=== PATIENT | female | born 1940 | race Caucasian/White ===

== ENCOUNTER 2023-02-18 10:50 | Emergency (ER) | payer MEDICARE, SELFPAY ==
[2023-02-18] VITALS (7 sets, daily range): BP systolic 133–149; BP diastolic 58–70; PULSE 56–72; RESP 16–22; TEMP 37.2–37.4; O2SAT 94–96; BMI 33.9
--- NOTE | 2023-02-18 10:55 | ED.RN ---
PATIENT VERY VAGUE, DOES NOT KNOW HER ALLERGIES, DOES NOT KNOW HER SSN, DOES NOT KNOW HER MEDICAL HX OR ALLERGIES. REQUESTS TO CONTACT DR. RAFFI PASCAL FAMILY DOCTOR WHO IS ALSO NOT AFFILIATED WITH [facility].
--- NOTE | 2023-02-18 11:37 | EKG12_ITS ---
Test Reason : SOB Blood Pressure : / mmHG Vent. Rate : 063 BPM Atrial Rate : 063 BPM P-R Int : 152 ms QRS Dur : 070 ms QT Int : 474 ms P-R-T Axes : 016 -06 021 degrees QTc Int : 485 ms Normal sinus rhythm Inferior infarct , age undetermined Abnormal ECG Confirmed by BI HOBSON, INDY ([id number]), television news video editor MEHRAN MOISE ([id number]) on 02/24/2023 9:46:52 AM Referred By: Confirmed By:INDY PAT MD
--- NOTE | 2023-02-18 11:37 | RAD_ITS ---
STUDY: X-RAY CHEST REASON FOR EXAM: Female, 82 years old. Chest pain. Covid positive. TECHNIQUE: Single AP portable view of the chest. COMPARISON: None. FINDINGS: EKG electrodes are seen. Mild degree of increased markings in the medial aspect of the right lung base. Early infiltrate should be ruled out. There is no demonstrated pleural abnormality. Normal size heart. Normal mediastinum and shanta. Normal visualized pulmonary arteries. There is atherosclerotic calcification of the aortic arch with tortuosity. There are degenerative changes of the visualized thoracic spine. There is degenerative osteoarthritis of the bilateral shoulders. There is no demonstrated abnormality of the visualized soft tissue structures of the upper abdomen. RAD/Chest 1 View (Portable) IMPRESSION: Increased markings are seen in the medial aspect of the right lung base. Early infiltrate should be ruled Electronically Signed: Rubén Lovell MD at 12:17 EDT ,
[2023-02-18 11:48] LABS: Absolute Lymphocyte Count 1.41 X10^3/uL (0.83-4.51); Absolute Neutrophil Count 4.7 X10^3/uL (2.0-7.7); Basophil# 0.04 X10^3/uL; Basophil% 0.6 % (0-1); Eosinophil# 0.12 X10^3/uL; Eosinophils% 1.7 % (0-5); Hematocrit 42.8 % (37-47); Hemoglobin 14.4 g/dL (12.0-15.0); Lymphocyte # 1.41 X10^3/ul (0.83-4.51); Mean Corp Hgb Conc 33.6 g/dL (32-36); Mean Corpuscular Hgb 27.5 pg (27.0-32.0); Mean Corpuscular Volume 81.8 fL (81-99); Mean Platelet Vol. 9.8 fl (6.2-12.0); Monocyte# 0.74 X10^3/uL; Monocyte% 10.5 % (0-10); NRBC Flagged by Analyzer 0 % (0-5); Neutrophil # 4.69 X10^3/uL (2.7-7.7); Neutrophil % 66.4 % (47-70); Platelet Count 297 K/mm3 (150-450); RBC Distribution Width CV 12.6 % (11.6-14.6); RBC Distribution Width SD 37.4 fl (35.1-43.9); Red Blood Count 5.23 M/mm3 (4.2-5.4); White Blood Count 7.1 K/mm3 (4.4-11.0)
--- NOTE | 2023-02-18 11:51 | NURSING ---
NO OLD EKGS
[2023-02-18 12:04] LABS: Bacteria 0 SEEN /hpf (None Seen); Mucous, Urine 0 SEEN /hpf (<or=2+); Red Blood Cells-Urine 0 SEEN /hpf (0-5)
[2023-02-18 12:05] LABS: Color, Urine Yellow (Yellow); Glucose, Dipstick Normal (Normal); Ketone-Dipstick Negative (Negative); Leukocyte Esterase-Dipstick 25 /ul (Negative); Nitrite-Dipstick Negative (Negative); Occult Blood-Urine Negative /ul (Negative); Protein-Dipstick Negative (Negative); Urine Bilirubin Dipstick Negative (Negative); Urine Clarity Clear (Clear); Urine Urobilinogen Normal (Normal); Urine pH 6.5 (5.0 - 8.0)
--- NOTE | 2023-02-18 12:08 | ED.RN ---
FAMILY CONTACTING PATIENT PCP TO FAX INFORMATION REGARDING ALLERGIES, MEDICATIONS AND HX.
[2023-02-18 12:11] LABS: Squamous Epithelial Cells - UA 0-5 SEEN /hpf (5-10); White Blood Cells 0-5 SEEN /hpf (0-5)
[2023-02-18 12:26] LABS: Anion Gap 7 (5-15); BUN 13 mg/dL (7-18); BUN/Creat Ratio 12.9 RATIO (10-20); Calcium,Total 8.7 mg/dL (8.5-10.1); Chloride 99 mmol/L (98-107); Creatinine, Serum 1.01 mg/dL (0.55-1.02); EST Glomerular Filtration Rate 56 mL/min (>60); Est Glom Filt Rate - Afr Amer 67 mL/min (>60); Estimated Creatinine Clearance 32.41 ml/min; Glucose 153 mg/dL (74-106); Potassium 2.7 mmol/L (3.5-5.1); Sodium Level 134 mmol/L (136-145); Troponin-I HS 12 pg/mL (3.0-54.0)
--- NOTE | 2023-02-18 12:28 | ED.RN ---
LAB CALLED K OF 2.7 DR MORENO
[2023-02-18] MEDS: Potassium Chloride Oral Tablet 20 MEQ 40 MEQ PO ×2 (13:02→15:19)
--- NOTE | 2023-02-18 13:03 | ED.RN ---
FAMILY [facility] LEFT VM AT PHYSICIANS OFFICE AND WAS GIVEN THE MESSAGE WILL RESPOND IN 2-3 BUSINESS DAYS. I WILL ATTEMPT TO CONTACT PCP FOR INFORMATION.
[2023-02-18] MEDS: Azithromycin 250 MG Tablet 500 MG PO (14:19)
--- NOTE | 2023-02-18 14:45 | ED.RN ---
Lyla ESPINO DID LEAVE VM W/ PCP REGARDING INFORMATION- NO CALL BACK. PATIENT D/C WITHOUT ALLERGY VERIFICATION.
--- NOTE | 2023-02-18 15:14 | EX.ED.DYSGE1 ---
HPI History of Present Illness Chief Complaint: Shortness of Breath Narrative Narrative: 82-year-old female presenting with generalized weakness. Apparently the whole household has had COVID-19. Patient presumably had this about a week and 1/2 to 2 weeks ago. No longer having fevers she is not coughing. No nausea or vomiting. Her daughter comes to see her during the day. Her works. She also has a son who has COVID-19 who is currently ill at home. Patient has not had any falls. [facility] Medical History Hypertension Home Medications azithromycin 250 mg tablet 250 mg PO DAILY #4 TABLETS 02/18/23 [Rx Last Taken Unknown] Social History Smoking Status: Never smoker ROS ROS ED Constitutional Constitutional ED: Denies chills or fever(s) Eyes Eyes: Denies change in vision or diplopia ENT ENT ED: Denies rhinorrhea or sore throat Cardiovascular Cardiovascular: Denies chest pain or palpitations Respiratory/Chest Respiratory/Chest: Reports cough Gastrointestinal Gastrointestinal: Denies abdominal pain, nausea or vomiting Genitourinary Genitourinary ED: Denies dysuria or hematuria Musculoskeletal Musculoskeletal: Denies myalgias Integumentary Denies abscess or Abrasions Neurologic Neurologic: Denies headache(s) Psychiatric Psychiatric: Denies anxiety or depression EXAM Physical Exam Const Vital Signs: 02/18/23 10:53 02/18/23 10:55 02/18/23 10:58 Temperature 99 F 99 F Temperature Source Temporal Temporal Pulse Rate 64 66 Respiratory Rate 22 H 17 Respiratory Effort Normal Non-Labored Respiratory Pattern Normal Blood Pressure 133/62 H 133/62 H Blood Pressure Mean 85 85 Pulse Ox 96 94 Oxygen Delivery Method Room Air Room Air Room Air 02/18/23 11:53 02/18/23 12:00 02/18/23 12:00 Temperature 99.3 F H Temperature Source Temporal Pulse Rate 64 64 Respiratory Rate 16 17 Respiratory Effort Respiratory Pattern Blood Pressure 145/58 H 145/58 H Blood Pressure Mean 87 87 Pulse Ox 95 95 95 Oxygen Delivery Method Room Air Room Air Room Air 02/18/23 13:00 02/18/23 14:22 Temperature 99.1 F Temperature Source Temporal Pulse Rate 56 L 72 Respiratory Rate 20 H 16 Respiratory Effort Respiratory Pattern Blood Pressure 149/67 H 141/70 H Blood Pressure Mean 94 Pulse Ox 94 95 Oxygen Delivery Method Room Air Positive well nourished General Appearance ED: NAD; Negative for pallor HEENT Reports moist mucous membranes Eyes PERRL and EOMs intact bilaterally Chest Wall inspection of chest normal and palpation of chest normal Resp normal respiratory effort and clear to auscultation bilaterally Auscultation: Negative for rales, rhonchi or wheezes Cardio regular rate and regular rhythm GI normal to inspection, nondistended, normoactive bowel sounds Extremity normal to inspection Neuro oriented x3 and CN's II-XII intact bilaterally Sensorium / Orientation: alert Motor Exam: strength 5/5 throughout Psych mental status grossly normal Skin no rashes or lesions noted General Skin Exam: Negative for jaundice or pallor MDM MDM MDM Narrative Medical decision making narrative: Patient presenting with generalized weakness. Recently had COVID-19. Patient is able to ambulate and has not followed falls. Daughter brings her in for evaluation CBC was obtained to assess white blood cell count, hemoglobin, platelets, differential. BMP to assess renal function, electrolytes, glucose, anion gap. High-sensitivity troponin, EKG, chest x-ray will be obtained to rule out cardiac source given the patient's weakness. Urinalysis to assess for UTI. CBC shows normal white blood cell count, hemoglobin 14.4. Platelet count 297. Renal function is normal. Potassium slight low at 2.7. She given 40 mill equivalents here. Glucose elevated at 153 without anion gap. High-sensitivity troponin is 12. Chest x-ray on my interpretation shows infiltrate in the right lung base. Is unclear if this is recent COVID or bacterial pneumonia although patient does have a leukocytosis. Her oxygen is normal. Vital signs are otherwise unremarkable. Urinalysis was obtained to assess for UTI and is negative. Since the patient's vital signs are normal and she is well-appearing I will treat her as pneumonia. She was started on a Z-Bj. First dose given in the ER. Discussed with daughter to increase high potassium foods. Patient discharged into the care of her daughter. Impression: 1. Generalized weakness 2. Pneumonia 3. Hypokalemia Lab Data Attestation: I reviewed the patient's lab results. Labs: Laboratory Results - last 24 hr 02/18/23 02/18/23 02/18/23 11:00 11:00 11:00 WBC 7.1 RBC 5.23 Hgb 14.4 Hct 42.8 MCV 81.8 MCH 27.5 MCHC 33.6 RDW Std Deviation 37.4 RDW Coeff of Timothy 12.6 Plt Count 297 MPV 9.8 Immature Gran % (Auto) 0.800 Neut % (Auto) 66.4 Lymph % (Auto) 20.0 [place] % (Auto) 10.5 H Eos % (Auto) 1.7 Baso % (Auto) 0.6 Absolute Neuts (auto) 4.7 Absolute Lymphs (auto) 1.41 Nucleated RBC % 0 D-Dimer Quant (PE/DVT) 0.40 Sodium 134 L Potassium 2.7 L* Chloride 99 Carbon Dioxide 28.0 Anion Gap 7 BUN 13 Creatinine 1.01 Estim Creat Clear Calc 32.41 Est GFR (MDRD) Af Amer 67 Est GFR (MDRD) Non-Af 56 L BUN/Creatinine Ratio 12.9 Glucose 153 H Calcium 8.7 Troponin I High Sens 12 Urine Color Urine Clarity Urine pH Ur Specific [place] Urine Protein Urine Glucose (UA) Urine Ketones Urine Occult Blood Urine Nitrite Urine Bilirubin Urine Urobilinogen Ur Leukocyte Esterase Urine RBC Urine WBC Ur Squamous Epith Cells Urine Bacteria Urine Mucus 02/18/23 11:55 WBC RBC Hgb Hct MCV MCH MCHC RDW Std Deviation RDW Coeff of Timothy Plt Count MPV Immature Gran % (Auto) Neut % (Auto) Lymph % (Auto) [place] % (Auto) Eos % (Auto) Baso % (Auto) Absolute Neuts (auto) Absolute Lymphs (auto) Nucleated RBC % D-Dimer Quant (PE/DVT) Sodium Potassium Chloride Carbon Dioxide Anion Gap BUN Creatinine Estim Creat Clear Calc Est GFR (MDRD) Af Amer Est GFR (MDRD) Non-Af BUN/Creatinine Ratio Glucose Calcium Troponin I High Sens Urine Color Yellow Urine Clarity Clear Urine pH 6.5 Ur Specific [place] 1.010 Urine Protein Negative Urine Glucose (UA) Normal Urine Ketones Negative Urine Occult Blood Negative Urine Nitrite Negative Urine Bilirubin Negative Urine Urobilinogen Normal Ur Leukocyte Esterase 25 H Urine RBC 0 SEEN Urine WBC 0-5 SEEN Ur Squamous Epith Cells 0-5 SEEN Urine Bacteria 0 SEEN Urine Mucus 0 SEEN Radiography Diagnostic Testing: Clinical Impression(s) from Imaging Studies Chest X-Ray 02/18/23 11:37 IMPRESSION: Increased markings are seen in the medial aspect of the right lung base. Early infiltrate should be ruled Electronically Signed: Rubén Lovell MD at 12:17 EDT , Discharge Plan Triage Chief Complaint: Shortness of Breath Other Complaint: Weakness ED Provider: Calos Acuna Dx/Rx/DC Orders Instructions: ED Hypokalemia, ED Pneumonia (Adult), ED Potassium-Rich Foods Prescriptions: New azithromycin 250 mg tablet 250 mg PO DAILY Qty: 4 0RF Primary Care Provider: J Carlos Marin Referrals: J Carlos Marin MD [Primary Care Provider] - Disposition Disposition: Home, Self Care
== END 2023-02-18 14:22 | disposition home or self-care (01) ==
PROVIDERS: Emergency Provider Student in an Organized Health Care Education/Training Program; PCP Family Medicine; Visit Provider Student in an Organized Health Care Education/Training Program
DX: R53.1 Weakness (principal); J18.9 Pneumonia, unspecified organism; E87.6 Hypokalemia
CPT/HCPCS: 71045; 80048; 81001; 84484; 85025; 85379; 93005; 99285

== ENCOUNTER → 2024-04-21 | Outpatient (CLI) | payer MEDICARE, SELFPAY | END | disposition home or self-care (01) | LOC: LABSPEC 15:12 | PROVIDERS: PCP Family Medicine; Visit Provider Otolaryngology | DX: J32.9 Chronic sinusitis, unspecified (principal) | CPT/HCPCS: 87070; 87205 ==

== ENCOUNTER 2024-11-07 21:23 | Emergency (ER) | payer MEDICARE, SELFPAY ==
[2024-11-07 21:23] VITALS: BP 143/68; PULSE 59; RESP 16; TEMP 36.8; O2SAT 95
[2024-11-07 21:27] VITALS: BMI 29.9
--- NOTE | 2024-11-07 22:08 | CT_ITS ---
STUDY: CT BRAIN WITHOUT CONTRAST REASON FOR EXAM: Female, 84 years old. head injury RADIATION DOSAGE (If Supplied By Facility): CTDIvol = ( 44.99 ) mGy, DLP = ( 779.24 ) mGycm TECHNIQUE: Transaxial CT imaging of the brain was performed without administration of intravenous contrast material. Individualized dose optimization techniques were used for this CT. COMPARISON: No relevant priors. FINDINGS: Normal soft tissue structures. Normal calvarium. Minor calcific plaquing of the cavernous carotids Atrophy and moderate to severe periventricular white matter ischemic changes.. Normal basal ganglia and thalami. Normal brainstem. Normal cerebellum. Incidental finding of cavum septa pellucida which is normal developmental variant There is no intracranial hemorrhage. There are no findings of an acute ischemic infarction. Mild mucosal thickening of bilateral maxillary ethmoid and sphenoid sinuses. CT/Brain/Head without Contrast IMPRESSION: Atrophy and moderate to severe periventricular white matter ischemic changes. . No evidence for acute intracranial hemorrhage Electronically Signed: Jose Juan Cazares MD at 22:50 EST Reading Location ID and State: [facility] / [place] Tel , Service support ,
--- NOTE | 2024-11-07 22:08 | RAD_ITS ---
EXAM: XR LUMBOSACRAL SPINE, 2 OR 3 VIEWS CLINICAL INDICATION: pain TECHNIQUE: Frontal and lateral views of the lumbar spine and sacrum. COMPARISON: No relevant prior studies available. FINDINGS: VERTEBRAE: There is bony neural foraminal narrowing at L4-5. Preserved vertebral body height. No fracture. No spondylolisthesis. Preservation of the normal lumbar lordosis. No significant facet arthropathy. DISC SPACES: There is bony fusion of L2 and L3. There is disc space narrowing at L1-2, L3-4 and L4-5. GASTROINTESTINAL TRACT: Unremarkable as visualized. Included bowel gas pattern is non-obstructive. RAD/Lumbar Spine 2 or 3 Views IMPRESSION: 1. No acute osseous abnormalities. 2. Multilevel degenerative change with disc space narrowing and bony neural foraminal narrowing. Electronically Signed: Bill Arvizu MD at 23:09 EST ,
--- NOTE | 2024-11-07 22:08 | CT_ITS ---
STUDY: CT CERVICAL SPINE WITHOUT CONTRAST REASON FOR EXAM: Female, 84 years old. fall RADIATION DOSAGE (If Supplied By Facility): CTDIvol = ( 16.07 ) mGy, DLP = ( 308.45 ) mGycm TECHNIQUE: High resolution transaxial imaging was performed without contrast material. Sagittal and coronal images were reconstructed. Individualized dose optimization techniques were used for this CT. COMPARISON: None FINDINGS: Normal craniovertebral junction. Normal anterior atlantoaxial articulation. Normal odontoid process. Loss of normal lordotic curvature possibly due to muscle spasm or positioning artifact. Normal vertebral bodies and posterior osseous elements. C2-3: Normal endplates. Normal disc height and morphology. Normal central canal and intervertebral neuroforamina. C3-4: Mild anterior endplate spurring. Narrowed disc space and normal disc morphology. Normal central canal and intervertebral neuroforamina. C4-5: Mild anterior endplate spurring. Narrowed disc space and normal morphology. Normal central canal and intervertebral neuroforamina. C5-6: Mild anterior endplate spurring. Narrowed disc space and normal disc morphology. Normal central canal and intervertebral neuroforamina. C6-7: Mild anterior endplate spurring. Narrowed disc space and normal disc morphology. Normal central canal and intervertebral neuroforamina. C7-T1: Normal endplates. Normal disc height and morphology. Normal central canal and intervertebral neuroforamina. Normal visualized soft tissue structures. CT/Spine Cervical without Contras IMPRESSION: No evidence for acute fracture or subluxation.. Spondylosis without evidence for disc protrusion spinal stenosis or cord compression Electronically Signed: Jose Juan Cazares MD at 22:57 EST Reading Location ID and State: [facility] / [place] Tel , Service support ,
--- NOTE | 2024-11-07 22:08 | RAD_ITS ---
EXAM: XR THORACIC SPINE, 3 VIEWS CLINICAL INDICATION: pain TECHNIQUE: Frontal, lateral and swimmer''s views of the thoracic spine. COMPARISON: No relevant prior studies available. FINDINGS: VERTEBRAE: Unremarkable. Preserved vertebral body height. No fracture. No spondylolisthesis. Preservation of the normal thoracic kyphosis. No significant facet arthropathy. DISC SPACES: There is multilevel degenerative change with disc space narrowing and anterior osteophyte formation. RAD/Thoracic Spine 3 Views IMPRESSION: No acute osseous abnormalities. There is multilevel degenerative change with disc space narrowing. Electronically Signed: Bill Arvizu MD at 23:19 EST ,
--- NOTE | 2024-11-07 22:08 | RAD_ITS ---
EXAM: XR LEFT HIP WITH PELVIS WHEN PERFORMED, 2 OR 3 VIEWS CLINICAL INDICATION: pain TECHNIQUE: Two or three views of the left hip with pelvis when performed. COMPARISON: No relevant prior studies available. FINDINGS: BONES/JOINTS: Unremarkable. No displaced fracture. No destructive or sclerotic lesions. Note that overlapping bowel shadows may however obscure fine detail. Sacroiliac joint is unremarkable. No widening of the pubic symphysis. The articular structures are unremarkable. SOFT TISSUES: Unremarkable. No soft tissue swelling or gas. RAD/HIP, UNI W/ Pelvis 2-3 Views IMPRESSION: No evidence of displaced pelvic or hip fracture. Electronically Signed: Bill Arvizu MD at 23:19 EST ,
[2024-11-07] MEDS: Acetaminophen 500 MG Tablet 1000 MG PO (22:18)
[2024-11-07] MEDS: Lidocaine 2% /Epi 1:100 (20ml) 20 ML VIAL INFILT (22:18)
[2024-11-07 23:23] VITALS: RESP 18
--- NOTE | 2024-11-07 23:38 | EX.ED.DYSGE1 ---
HPI History of Present Illness Chief Complaint: Fall Informant: patient and family Narrative Narrative: Patient is an 84-year-old female with past medical history of hypertension hyperlipidemia. Roughly 1 to 2 hours prior to arrival she was in the shower when she lost her balance and fell. The fall was witnessed by the family. They state that she did not have any loss of consciousness and her only blood thinner is a baby aspirin. They report they are able to help stand her up and she was able to ambulate. However they noticed a laceration to her scalp as well as her left elbow and with concern for potential brain injury and need for closure she was brought in for evaluation. Patient reports mild pain in her left hip and head. Family states she is at her baseline mental status and acting normal. [facility] Medical History Hypertension Home Medications ?Medication ?Instructions ?Recorded ?Last Taken ?Type aspirin 81 mg chewable tablet 1 tab PO DAILY 11/07/24 Unknown History atorvastatin 40 mg tablet 40 mg PO DAILY 11/07/24 Unknown History memantine 10 mg tablet 10 mg PO BID 11/07/24 Unknown History propranolol 10 mg tablet 10 - 20 mg PO BID PRN PRN anxiety 11/07/24 Unknown History Allergy/AdvReac Type Severity Reaction Status Date / Time levofloxacin (From Levaquin) Allergy Mild Rash Verified 11/07/24 21:50 quinapril (From Accupril) Allergy Mild rash Verified 11/07/24 21:50 tetracycline Allergy Mild Hives Verified 11/07/24 21:50 Social History Smoking Status: Never smoker ROS ROS ED Constitutional Constitutional ED: Denies chills or fever(s) Eyes Eyes: Denies blurry vision or change in vision ENT ENT ED: Denies sore throat Cardiovascular Cardiovascular: Reports other Details: Negative syncope ; Denies chest pain Respiratory/Chest Respiratory/Chest: Denies cough or dyspnea Gastrointestinal Gastrointestinal: Denies abdominal pain, diarrhea, nausea or vomiting Genitourinary Genitourinary ED: Denies dysuria Musculoskeletal Musculoskeletal: Reports back pain and other Details: Positive left hip pain ; Denies neck pain Integumentary Reports other Details: Positive laceration Neurologic Neurologic: Reports headache(s); Denies paresthesias or weakness Hematologic/Lymphatic Hematologic/Lymphatic: Denies easy bleeding or easy bruising EXAM Physical Exam Const Vital Signs: 11/07/24 21:23 11/07/24 23:23 11/07/24 23:56 Temperature 98.2 F 97.9 F Temperature Source Oral Pulse Rate 59 L 56 L Respiratory Rate 16 18 16 Blood Pressure 143/68 H 161/68 H Blood Pressure Mean 93 99 Pulse Ox 95 91 Oxygen Delivery Method Room Air Positive well nourished and well developed General Appearance ED: well developed HEENT HEENT Narrative: Patient has a 2 cm linear subcutaneous layer deep laceration to the upper right occipital portion of the scalp. Minimal ooze of blood and no retained foreign body No signs of depressed or basilar skull fracture Eyes PERRL and EOMs intact bilaterally Neck supple Neck Narrative: No bony deformity or step-off of the cervical spine no midline tenderness to palpation Patient is able to move her neck in all directions without pain Chest Wall palpation of chest normal Chest Narrative: No bony deformity or crepitance or subcutaneous emphysema Resp normal respiratory effort and clear to auscultation bilaterally Cardio regular rate and regular rhythm GI normal to inspection, nondistended, normoactive bowel sounds, non-tender, non-distended and no masses Auscultation: normoactive bowel sounds Palpation: soft Back/Spine Back/Spine Narrative: No bony deformity or step-off of the thoracic or lumbar spine. There is midline tenderness to palpation along the T10-L2 region of the back. Extremity Extremity Narrative: Pelvis is stable there is no shortening or external rotation of either lower extremity Patient does have mild pain with palpation in the left inguinal region over top the pubic rami Left upper extremity is neurovascularly intact. Patient has a linear 1.5 cm subcutaneous layer deep laceration over top the olecranon. Minimal ooze of blood without foreign bodies noted. No ligamentous or tendon damage noted Along the dorsal distal third of the right forearm there is a linear dermal layer laceration that is 2 cm in length without active bleeding or retained foreign body. All compartments are soft and compressible going against compartment syndrome Patient can move all extremities without difficulty Neuro CN's II-XII intact bilaterally and no sensory deficits noted Neuro Narrative: Patient is at her baseline mental status without focal neurologic deficit Sensorium / Orientation: alert Motor Exam: strength 5/5 throughout Psych mental status grossly normal Skin Skin Narrative: Lacerations to the scalp left elbow/olecranon and right distal third of the forearm as documented above MDM MDM MDM Narrative Medical decision making narrative: Patient arrived to the ER with stable vitals and at baseline mental status. Patient and family reported mechanical fall so there is no need for cardiac or syncope workup. As there is concern for traumatic skull fracture versus traumatic subarachnoid or subdural hemorrhage versus cervical compression fracture versus thoracic/lumbar compression fracture burst fracture CTs and x-rays were ordered. With pain in the left inguinal region there is concern for a pubic rami fracture as well. All imaging studies revealed no signs of acute trauma. The patient had her wounds closed as document below. As she is able to ambulate with stable vitals and normal neurologic exam and imaging reveals no signs of acute trauma she is otherwise safe for discharge Patient had the left elbow cleaned with chlorhexidine. The area was anesthetized using 4 mL of 2% lidocaine with epinephrine in local fashion. The wound was copiously irrigated. Then six 4-0 Ethilon sutures were placed in simple interrupted fashion. This brought the wound together good approximation. Patient tolerated the procedure well without complication Patient's right occipital scalp laceration was cleaned with chlorhexidine. It was anesthetized using 5 mL of 2% lidocaine with epinephrine in local fashion. The area was copiously irrigated with normal saline. Then 4 leticia were placed bring the wound together good approximation. Patient tolerated the procedure well without complication The patient's right distal third forearm laceration was cleaned with chlorhexidine. Manual pressure was applied to bring the wound edges together with close approximation. Dermabond was then placed across the wound holding it together well. Patient tolerated the procedure without complication History & Record Review Discussion w/independent historian: Patient and Family Radiography Diagnostic Testing: Clinical Impression(s) from Imaging Studies Brain CT 11/07/24 22:08 IMPRESSION: Atrophy and moderate to severe periventricular white matter ischemic changes. . No evidence for acute intracranial hemorrhage Electronically Signed: Jose Juan Cazares MD at 22:50 EST , Cervical Spine CT 11/07/24 22:08 IMPRESSION: No evidence for acute fracture or subluxation.. Spondylosis without evidence for disc protrusion spinal stenosis or cord compression Electronically Signed: Jose Juan Cazares MD at 22:57 EST , Hip/Pelvis X-Ray 11/07/24 22:08 IMPRESSION: No evidence of displaced pelvic or hip fracture. Electronically Signed: Bill Arvizu MD at 23:19 EST , Lumbar Spine X-Ray 11/07/24 22:08 IMPRESSION: 1. No acute osseous abnormalities. 2. Multilevel degenerative change with disc space narrowing and bony neural foraminal narrowing. Electronically Signed: Bill Arvizu MD at 23:09 EST , Thoracic Spine X-Ray 11/07/24 22:08 IMPRESSION: No acute osseous abnormalities. There is multilevel degenerative change with disc space narrowing. Electronically Signed: Bill Arvizu MD at 23:19 EST , Left hip x-ray with 1 view pelvis as interpreted by the emergency medicine physician reveals mild osteoarthritic/degenerative changes without acute fracture dislocation or joint effusion X-ray of the thoracic spine as interpreted by the emergency medicine physician reveals osteoarthritic changes without acute compression fracture or spondylolisthesis X-ray of the lumbar spine as interpreted by the emergency medicine physician reveals osteoarthritic changes without acute compression fracture or spondylolisthesis Discharge Plan Triage Chief Complaint: Fall ED Provider: Nando George Dx/Rx/DC Orders Clinical Impression: Head injury, Laceration of occipital region of scalp, Elbow laceration, Accidental fall, Hypertension Instructions: ED Head Injury (Adult), ED Laceration, All Closures Prescriptions: No Action atorvastatin 40 mg tablet 40 mg PO DAILY aspirin 81 mg tablet,chewable 1 tab PO DAILY propranolol 10 mg tablet 10 - 20 mg PO BID PRN PRN (Reason: anxiety) memantine 10 mg tablet 10 mg PO BID Primary Care Provider: Brian Merrill Referrals: Brian Merrill, [employer] AND [employer]ITICAL STUDIES PROFESSOR-C [Primary Care Provider] - Activity Restrictions/Additional Instructions: Please see your family doctor or return to the ER in 10 to 14 days for suture and staple removal. Your imaging study showed no signs of broken bone brain bleed or skull fracture. Continue with Tylenol and/or Motrin for pain control and return to the ER should you have any further concerns Print Language: Mongolian Disposition Disposition: Home, Self Care Discharge Date/Time: 11/07/24 23:57
[2024-11-07 23:56] VITALS: BP 161/68; PULSE 56; RESP 16; TEMP 36.6; O2SAT 91
== END 2024-11-07 23:57 | disposition home or self-care (01) ==
PROVIDERS: Emergency Provider Emergency Medicine; Visit Provider Emergency Medicine
DX: S01.01XA Laceration without foreign body of scalp, initial encounter (principal); S51.012A Laceration without foreign body of left elbow, initial encounter; S51.811A Laceration without foreign body of right forearm, initial encounter; W18.2XXA Fall in (into) shower or empty bathtub, initial encounter; Y93.E1 Activity, personal bathing and showering; I10 Essential (primary) hypertension; E78.5 Hyperlipidemia, unspecified; M16.12 Unilateral primary osteoarthritis, left hip; M47.816 Spondylosis without myelopathy or radiculopathy, lumbar region; M47.814 Spondylosis without myelopathy or radiculopathy, thoracic region; Z88.1 Allergy status to other antibiotic agents; Z79.82 Long term (current) use of aspirin; Z79.899 Other long term (current) drug therapy
CPT/HCPCS: 12002; 70450; 72072; 72100; 72125; 73502; 99283